=== PATIENT | female | born 1990 | race Caucasian/White ===

== ENCOUNTER 2017-10-07 19:29 | Inpatient (IN) ==
[2017-10-07] MEDS ORDERED: ONDANSETRON 4 MG/2 ML VIAL IV PRN (20:14)
[2017-10-07] MEDS ORDERED: MEPERIDINE 50 MG/1 ML VIAL IM PRN (20:14)
[2017-10-07] MEDS: LACTATED RINGERS 1,000 ML IV SCH (20:30)
[2017-10-07] MEDS ORDERED: AZITHROMYCIN INJ 1,000 MG in SODIUM CHLORIDE 0.9% 250 ML IV ONE (20:48)
[2017-10-07 21:03] LABS: Basophils % 0.2 % (0.0-0.8); Eosinophils # 0.2 10*3/uL (0.0-0.87); Eosinophils % 1.6 % (0.00-10.9); Hematocrit 24.7 VOL% (35.7-47.0); Hemoglobin 8.4 GM/DL (12.0-16.0); Immature Granulocytes % 1.2 %; Immature Granulocytes Absolute 0.14 #; Lymphocytes # 3.1 10*3/uL (1.4-4.0); Lymphocytes % 27.2 % (21.3-54.2); Mean Corpuscular Hemoglobin 32 PG (27-34); Mean Corpuscular Volume 92.9 FL (87-102); Mean Platelet Volume 10.9 FL (9.6-12.0); Monocytes # 0.9 10*3/uL (0.11-0.8); Monocytes % 8.3 % (1.7-12.7); Neutrophils # 6.9 10*3/uL (1.4-7.4); Neutrophils % 61.5 % (38.7-73.9); Platelet Count 262 T/CUMM (130-400); Red Blood Count 2.66 MC/CUMM (3.8-5.5); Red Cell Distribution Width 12.5 % (9.3-17.3); White Blood Count 11.3 T/CUMM (4-12)
[2017-10-07 21:19] LABS: Apearance,Urine CLEAR (Clear); Bilirubin,Urine Negative (Negative); Blood, Urine Large mg/dL (Negative); Glucose,Urine (UA) Negative (Negative); Ketones,Urine Negative (Negative); Nitrite,Urine Negative (Negative); Protein,Urine Negative; RBC,Urine <1 /HPF (0-4); Squamous Epithelial Cell,Urine Occasional /HPF (0-10); Urine Color Straw (Yellow); Urine Specific Gravity 1.003 (1.001-1.035); Urine Urobilinogen < 2.0 EU/DL (0.2-1.0); WBC,Urine 3 /HPF (0-6)
[2017-10-07 21:25] LABS: Alanine Aminotransferase 12 U/L (13-56); Albumin 2.7 G/DL (3.4-5.0); Alkaline Phosphatase 60 U/L (45-117); Aspartate Amino Transferase 10 U/L (0-37); Bilirubin,Total < 0.39 MG/DL (0.2-1.0); Blood Urea Nitrogen 6 MG/DL (7-18); Calcium 8.5 MG/DL (8.5-10.1); Glucose 93 MG/DL (74-106); Osmolality,Calculated 276.4 MOS/KG (273-304); Potassium 3.6 MMOL/L (3.5-5.1); Sodium 140 MMOL/L (136-145); Total Protein 6.1 G/DL (6.4-8.3)
[2017-10-07] MEDS: BETAMETH SODIUM PHOS/ACETATE 30 MG/5 ML VIAL IM SCH (21:53)
[2017-10-07] MEDS: AMPICILLIN INJ 2,000 MG in SODIUM CHLORIDE 0.9% 50 ML IV SCH (21:54)
[2017-10-07 22:12] LABS: HIV Antigen/Antibody Result Nonreactive (Nonreactive)
[2017-10-07 22:22] LABS: Hepatitis B Surface Ag Quant 0.23 Index; Hepatitis B Surface Ag Result Negative (Negative)
[2017-10-08] MEDS: AMPICILLIN INJ 2,000 MG in SODIUM CHLORIDE 0.9% 50 ML IV SCH ×3 (02:43→21:45)
[2017-10-08] MEDS: LACTATED RINGERS 1,000 ML IV SCH ×2 (02:58→21:52)
[2017-10-08 04:12] LABS: Rapid Plasma Reagin Confirm NONREACTIVE (Nonreactive)
[2017-10-08] MEDS: BETAMETH SODIUM PHOS/ACETATE 30 MG/5 ML VIAL IM SCH (21:46)
[2017-10-09] MEDS: AMPICILLIN INJ 2,000 MG in SODIUM CHLORIDE 0.9% 50 ML IV SCH ×5 (02:51→21:00)
[2017-10-09] MEDS: DOCUSATE SODIUM 100 MG CAPSULE PO SCH (08:41)
[2017-10-09] MEDS: FERROUS SULFATE ER 140 MG TABLET PO SCH (11:00)
[2017-10-09] MEDS: LACTATED RINGERS 1,000 ML IV SCH ×3 (11:15→23:27)
[2017-10-09] MEDS: ALUMINUM/MAGNES/SIMETH MAX STR 30 ML UDCUP PO PRN (21:19)
[2017-10-10] MEDS: FERROUS SULFATE ER 140 MG TABLET PO SCH ×2 (09:04→09:05)
[2017-10-10] MEDS: DOCUSATE SODIUM 100 MG CAPSULE PO SCH (09:05)
[2017-10-10] MEDS: AMOXICILLIN 875 MG TABLET PO SCH ×2 (09:59→21:24)
[2017-10-10] MEDS: ALUMINUM/MAGNES/SIMETH MAX STR 30 ML UDCUP PO PRN ×3 (10:02→21:25)
[2017-10-11 02:40] LABS: Barbiturates Screen,Urine Negative (Negative); Benzodiazepines Screen,Urine Negative (Negative); Cannabinoid Screen,Urine Negative (Negative); Opiate Screen,Urine Negative (Negative); Phencyclidine Screen,Urine Negative (Negative)
[2017-10-11] MEDS: MULTIVITAMIN (PRENATAL) TABLET PO SCH (09:14)
[2017-10-11] MEDS: AMOXICILLIN 875 MG TABLET PO SCH ×2 (09:14→21:19)
[2017-10-11] MEDS: DOCUSATE SODIUM 100 MG CAPSULE PO SCH (09:14)
[2017-10-11] MEDS: FERROUS SULFATE ER 140 MG TABLET PO SCH (09:14)
[2017-10-12] MEDS: MULTIVITAMIN (PRENATAL) TABLET PO SCH (09:25)
[2017-10-12] MEDS: AMOXICILLIN 875 MG TABLET PO SCH ×2 (09:25→21:12)
[2017-10-12] MEDS: FERROUS SULFATE ER 140 MG TABLET PO SCH (09:25)
[2017-10-12] MEDS: DOCUSATE SODIUM 100 MG CAPSULE PO SCH (09:25)
[2017-10-13] MEDS ORDERED: ACETAMINOPHEN 325 MG TABLET ONE (07:37)
[2017-10-13] MEDS: ACETAMINOPHEN 325 MG TABLET PO PRN ×2 (07:40→23:48)
[2017-10-13] MEDS: DOCUSATE SODIUM 100 MG CAPSULE PO SCH (08:09)
[2017-10-13] MEDS: MULTIVITAMIN (PRENATAL) TABLET PO SCH (08:09)
[2017-10-13] MEDS: FERROUS SULFATE ER 140 MG TABLET PO SCH (08:09)
[2017-10-13] MEDS: AMOXICILLIN 875 MG TABLET PO SCH ×2 (08:09→21:16)
[2017-10-13] MEDS ORDERED: IBUPROFEN 800 MG TABLET PO ONE (11:15)
[2017-10-13 12:17] LABS: Basophils # 0.1 10*3/uL (0.0-0.2); Basophils % 0.3 % (0.0-0.8); Eosinophils # 0.2 10*3/uL (0.0-0.87); Eosinophils % 1.3 % (0.00-10.9); Hematocrit 28.9 VOL% (35.7-47.0); Hemoglobin 9.7 GM/DL (12.0-16.0); Immature Granulocytes % 5.3 %; Immature Granulocytes Absolute 0.89 #; Lymphocytes # 3.4 10*3/uL (1.4-4.0); Mean Corpuscular HGB Conc 33.6 GM/DL (32-36); Mean Corpuscular Hemoglobin 31 PG (27-34); Mean Corpuscular Volume 93.2 FL (87-102); Mean Platelet Volume 11.1 FL (9.6-12.0); Monocytes # 1.2 10*3/uL (0.11-0.8); Monocytes % 7.2 % (1.7-12.7); Neutrophils # 11.2 10*3/uL (1.4-7.4); Neutrophils % 65.9 % (38.7-73.9); Platelet Count 330 T/CUMM (130-400); Red Cell Distribution Width 13.1 % (9.3-17.3); White Blood Count 16.9 T/CUMM (4-12)
[2017-10-13 12:37] LABS: Band Neutrophils 2 % (0-10); Eosinophils 5 % (0-10); Giant Platelets Few; Hypochromasia 1+; Lymphocytes 15 % (20-55); Platelet Estimate Adequate; Segmented Neutrophils 71 % (50-85); Total Cells Counted 100
[2017-10-13 13:38] LABS: Apearance,Urine CLEAR (Clear); Bilirubin,Urine Negative (Negative); Blood, Urine Large mg/dL (Negative); Glucose,Urine (UA) Negative (Negative); Ketones,Urine Negative (Negative); Mucus,Urine Occasional /LPF (Occasional); Nitrite,Urine Negative (Negative); Protein,Urine Negative; RBC,Urine 31 /HPF (0-4); Squamous Epithelial Cell,Urine Occasional /HPF (0-10); Urine Color Yellow (Yellow); Urine Specific Gravity 1.006 (1.001-1.035); Urine Urobilinogen < 2.0 EU/DL (0.2-1.0); WBC,Urine 7 /HPF (0-6)
[2017-10-13] MEDS ORDERED: cefTRIAXone 1,000 MG VIAL IM ONE (14:51)
[2017-10-13] MEDS ORDERED: LIDOCAINE 1% 20 ML VIAL IM ONE ×2 (15:21→17:30)
[2017-10-13] MEDS: NITROFURANTOIN MACRO/MONO 100 MG CAPSULE PO SCH ×2 (17:38→21:16)
[2017-10-14] MEDS: MULTIVITAMIN (PRENATAL) TABLET PO SCH (09:00)
[2017-10-14] MEDS: NITROFURANTOIN MACRO/MONO 100 MG CAPSULE PO SCH ×2 (09:00→20:36)
[2017-10-14] MEDS: DOCUSATE SODIUM 100 MG CAPSULE PO SCH (09:00)
[2017-10-14] MEDS: AMOXICILLIN 875 MG TABLET PO SCH ×2 (09:00→20:37)
[2017-10-14] MEDS: FERROUS SULFATE ER 140 MG TABLET PO SCH (09:00)
[2017-10-15 06:36] LABS: Basophils # 0.1 10*3/uL (0.0-0.2); Basophils % 0.3 % (0.0-0.8); Eosinophils # 0.3 10*3/uL (0.0-0.87); Eosinophils % 1.4 % (0.00-10.9); Hematocrit 28.2 VOL% (35.7-47.0); Hemoglobin 9.5 GM/DL (12.0-16.0); Immature Granulocytes % 5.1 %; Immature Granulocytes Absolute 0.89 #; Lymphocytes # 3.3 10*3/uL (1.4-4.0); Lymphocytes % 19.1 % (21.3-54.2); Mean Corpuscular HGB Conc 33.7 GM/DL (32-36); Mean Corpuscular Hemoglobin 32 PG (27-34); Mean Platelet Volume 10.8 FL (9.6-12.0); Monocytes # 1.1 10*3/uL (0.11-0.8); Monocytes % 6.3 % (1.7-12.7); Neutrophils # 11.8 10*3/uL (1.4-7.4); Neutrophils % 67.8 % (38.7-73.9); Platelet Count 287 T/CUMM (130-400); Red Cell Distribution Width 13.3 % (9.3-17.3); White Blood Count 17.5 T/CUMM (4-12)
[2017-10-15 08:20] LABS: Eosinophils 1 % (0-10); Hypochromasia 1+; Lymphocytes 14 % (20-55); Macrocytosis 1+; Platelet Estimate Adequate; Segmented Neutrophils 75 % (50-85); Total Cells Counted 100
[2017-10-15] MEDS: MULTIVITAMIN (PRENATAL) TABLET PO SCH (08:46)
[2017-10-15] MEDS: DOCUSATE SODIUM 100 MG CAPSULE PO SCH (08:47)
[2017-10-15] MEDS: FERROUS SULFATE ER 140 MG TABLET PO SCH (08:47)
[2017-10-15] MEDS: NITROFURANTOIN MACRO/MONO 100 MG CAPSULE PO SCH ×2 (08:47→21:03)
[2017-10-15] MEDS: AMOXICILLIN 875 MG TABLET PO SCH (08:47)
[2017-10-15] MEDS: ACETAMINOPHEN 325 MG TABLET PO PRN (19:26)
[2017-10-16] MEDS: NITROFURANTOIN MACRO/MONO 100 MG CAPSULE PO SCH ×2 (09:41→22:49)
[2017-10-16] MEDS: DOCUSATE SODIUM 100 MG CAPSULE PO SCH (09:41)
[2017-10-16] MEDS: MULTIVITAMIN (PRENATAL) TABLET PO SCH (09:41)
[2017-10-16] MEDS: FERROUS SULFATE ER 140 MG TABLET PO SCH (09:41)
[2017-10-16] MEDS ORDERED: OXYTOCIN/LR 20 UNIT/1,000 ML BAG IV ONE ×3 (18:11→19:07)
[2017-10-16] MEDS ORDERED: AMPICILLIN 2,000 MG VIAL ONE (18:17)
[2017-10-16 18:25] LABS: Basophils # 0.1 10*3/uL (0.0-0.2); Basophils % 0.3 % (0.0-0.8); Eosinophils # 0.2 10*3/uL (0.0-0.87); Eosinophils % 1.3 % (0.00-10.9); Hematocrit 30.8 VOL% (35.7-47.0); Hemoglobin 10.2 GM/DL (12.0-16.0); Immature Granulocytes % 4.8 %; Immature Granulocytes Absolute 0.75 #; Lymphocytes # 3.5 10*3/uL (1.4-4.0); Lymphocytes % 22.3 % (21.3-54.2); Mean Corpuscular HGB Conc 33.1 GM/DL (32-36); Mean Corpuscular Hemoglobin 32 PG (27-34); Mean Corpuscular Volume 95.7 FL (87-102); Mean Platelet Volume 10.8 FL (9.6-12.0); Monocytes % 6.7 % (1.7-12.7); Neutrophils % 64.6 % (38.7-73.9); Platelet Count 302 T/CUMM (130-400); Red Blood Count 3.22 MC/CUMM (3.8-5.5); Red Cell Distribution Width 13.3 % (9.3-17.3); White Blood Count 15.5 T/CUMM (4-12)
[2017-10-16 18:28] LABS: Apearance,Urine CLEAR (Clear); Bilirubin,Urine Negative (Negative); Blood, Urine Negative (Negative); Glucose,Urine (UA) Negative (Negative); Ketones,Urine Negative (Negative); Nitrite,Urine Negative (Negative); Protein,Urine Negative; Squamous Epithelial Cell,Urine Occasional /HPF (0-10); Urine Color Colorless (Yellow); Urine Specific Gravity 1.001 (1.001-1.035); Urine Urobilinogen < 2.0 EU/DL (0.2-1.0); WBC,Urine <1 /HPF (0-6)
[2017-10-16 18:36] LABS: INR 0.9; PT Patient Result 9.4 SECS; Partial Thromboplastin Time 24.5 SECS (0-40)
[2017-10-16 18:47] LABS: Alanine Aminotransferase 13 U/L (13-56); Albumin 3.1 G/DL (3.4-5.0); Alkaline Phosphatase 74 U/L (45-117); Aspartate Amino Transferase 15 U/L (0-37); Bilirubin,Total < 0.39 MG/DL (0.2-1.0); Blood Urea Nitrogen 5 MG/DL (7-18); Glucose 90 MG/DL (74-106); Osmolality,Calculated 271.7 MOS/KG (273-304); Potassium 3.6 MMOL/L (3.5-5.1); Sodium 138 MMOL/L (136-145); Total Protein 7.2 G/DL (6.4-8.3)
[2017-10-16 18:54] LABS: Cord Arterial Blood HCO3 13.5 MMOL/L
[2017-10-16 18:57] LABS: Cord Venous Blood HCO3 21.4 MMOL/L; Cord Venous Blood PCO2 41.4 MMHG; Cord Venous Blood PO2 32.4 MMHG
[2017-10-16] MEDS ORDERED: MIDAZOLAM 2 MG/2 ML VIAL ONE (19:14)
[2017-10-16] MEDS ORDERED: ONDANSETRON 4 MG/2 ML VIAL ONE (19:14)
[2017-10-16] MEDS ORDERED: PROPOFOL 200 MG/20 ML VIAL IV ONE (19:14)
[2017-10-16] MEDS ORDERED: SEVOFLURANE 1 UNIT/15 MINUTE INH ONE (19:14)
[2017-10-16] MEDS ORDERED: DEXAMETHASONE 10 MG/1 ML VIAL ONE (19:14)
[2017-10-16] MEDS ORDERED: fentaNYL 100 MCG/2 ML VIAL ONE (19:14)
[2017-10-16] MEDS ORDERED: KETOROLAC 30 MG/1 ML VIAL ONE (19:15)
[2017-10-16] MEDS ORDERED: NEOSTIGMINE 10 MG/10 ML VIAL ONE (19:15)
[2017-10-16] MEDS ORDERED: SIMETHICONE CHEW 80 MG TABLET PO PRN (19:15)
[2017-10-16] MEDS ORDERED: ROCURONIUM 100 MG/10 ML VIAL IV ONE (19:15)
[2017-10-16] MEDS ORDERED: RHO(D) IMMUNE GLOBULIN 300 MCG SYRINGE IM ONE (19:15)
[2017-10-16] MEDS ORDERED: SUCCINYLCHOLINE 200 MG/10 ML VIAL ONE (19:15)
[2017-10-16] MEDS ORDERED: GLYCOPYRROLATE 0.4 MG/2 ML VIAL ONE ×2 (19:15)
[2017-10-16] MEDS ORDERED: NALOXONE 0.4 MG/ML VIAL IV PRN (19:21)
[2017-10-16] MEDS ORDERED: HYDROmorphone 2 MG/1 ML VIAL IV ONE (19:24)
[2017-10-16] MEDS ORDERED: PROMETHAZINE INJ 25 MG in SODIUM CHLORIDE 0.9% 50 ML IV PRN (19:26)
[2017-10-16] MEDS ORDERED: PROMETHAZINE 25 MG/1 ML VIAL ONE (19:35)
[2017-10-16] MEDS: HYDROmorphone PCA 30 MG/30 ML SYRINGE IV SCH (20:03)
[2017-10-16] MEDS ORDERED: NICOTINE 14 MG/24 HR PATCH TRANSDERM PRN (22:26)
[2017-10-17] MEDS: LACTATED RINGERS 1,000 ML IV SCH ×2 (01:11→21:23)
[2017-10-17] MEDS: ceFAZolin 1,000 MG in SYRINGE 1 EACH IV SCH ×3 (02:16→18:46)
[2017-10-17] MEDS ORDERED: OXYTOCIN/LR 20 UNIT/1,000 ML BAG IV ONE (02:33)
[2017-10-17 05:44] LABS: Basophils % 0.2 % (0.0-0.8); Hematocrit 24.5 VOL% (35.7-47.0); Hemoglobin 8.3 GM/DL (12.0-16.0); Immature Granulocytes % 3.6 %; Immature Granulocytes Absolute 0.85 #; Lymphocytes # 2.5 10*3/uL (1.4-4.0); Lymphocytes % 10.6 % (21.3-54.2); Mean Corpuscular HGB Conc 33.9 GM/DL (32-36); Mean Corpuscular Hemoglobin 32 PG (27-34); Mean Corpuscular Volume 93.5 FL (87-102); Mean Platelet Volume 10.7 FL (9.6-12.0); Monocytes # 1.3 10*3/uL (0.11-0.8); Monocytes % 5.3 % (1.7-12.7); Neutrophils # 18.9 10*3/uL (1.4-7.4); Neutrophils % 80.3 % (38.7-73.9); Platelet Count 256 T/CUMM (130-400); Red Blood Count 2.62 MC/CUMM (3.8-5.5); Red Cell Distribution Width 13.5 % (9.3-17.3); White Blood Count 23.6 T/CUMM (4-12)
[2017-10-17 06:26] LABS: Band Neutrophils 2 % (0-10); Lymphocytes 10 % (20-55); Macrocytosis 1+; Platelet Estimate Adequate; Promyelocytes 1 %; Segmented Neutrophils 84 % (50-85); Total Cells Counted 100
[2017-10-17] MEDS: IBUPROFEN 800 MG TABLET PO SCH ×2 (09:52→18:45)
[2017-10-17] MEDS: MAGNESIUM HYDROXIDE SUSP 30 ML UDCUP PO PRN ×2 (10:00→20:48)
[2017-10-17] MEDS: DOCUSATE SODIUM 100 MG CAPSULE PO SCH (10:00)
[2017-10-17] MEDS: MULTIVITAMIN (PRENATAL) TABLET PO SCH (10:00)
[2017-10-17] MEDS: FERROUS SULFATE 325 MG TABLET PO SCH (20:48)
[2017-10-17] MEDS: HYDROmorphone PCA 30 MG/30 ML SYRINGE IV SCH (21:24)
[2017-10-17] MEDS: NITROFURANTOIN MACRO/MONO 100 MG CAPSULE PO SCH (21:25)
[2017-10-18] MEDS: IBUPROFEN 800 MG TABLET PO SCH ×2 (03:33→12:17)
[2017-10-18 05:38] LABS: Rapid Plasma Reagin Confirm REACTIVE (Nonreactive)
[2017-10-18 07:24] VITALS: BP 83/55
[2017-10-18] MEDS ORDERED: PENICILLIN G BENZATHINE 2,400,000 UNIT/4 ML SYRINGE IM STA (09:36)
[2017-10-18] MEDS: MULTIVITAMIN (PRENATAL) TABLET PO SCH (09:40)
[2017-10-18] MEDS: DOCUSATE SODIUM 100 MG CAPSULE PO SCH (09:40)
[2017-10-18] MEDS: FERROUS SULFATE 325 MG TABLET PO SCH (09:40)
== END 2017-10-18 13:45 | disposition home or self-care (01) | DRG 540 ==
LOC: N.LDOUT 19:29 → N.LD 19:31 → N.OB 10-08 21:11 → N.LD 10-16 18:19 → N.OB 10-17 08:15
PROVIDERS: ADMIT Obstetrics & Gynecology; ATTEND Obstetrics & Gynecology
PROC: LDCSECT (ICD-10-PCS; 2017-10-16 18:00)